=== PATIENT | male | born 1990 | race Caucasian/White ===

== ENCOUNTER 2021-09-05 22:38 | Emergency (ER) | payer OTHER ==
[2021-09-06 02:13] LABS: BASOPHIL 0.5 % (0-2); EOSINOPHIL 1.3 % (0-5); HCT 44.2 % (42.0-52.0); LYMPHOCYTE 44.1 % (15-48); MCH 31.3 pg (25.0-31.0); MCHC 33.9 g/dL (32.0-36.0); MCV 92.1 fL (78.0-100.0); MONOCYTE 12.2 % (0-12); MPV 8.6 fL (6.0-9.5); NEUTROPHIL 41.9 % (41-80); NRBC 0; PLT 215 K/uL (150-400); RDW 11.8 % (11.5-14.0); WBC 5.6 K/uL (4.0-10.5)
[2021-09-06 02:23] LABS: BILIRUBIN - TOTAL 0.3 mg/dL (0.2-1.0); BUN/CREAT RATIO (CALC) 17.1 RATIO; CREATININE 1.11 mg/dL (0.67-1.17); GLOBULIN (CALCULATION) 2.5 g/dL; POTASSIUM 3.6 mmol/L (3.5-5.1); TOTAL PROTEIN 6.5 g/dL (6.4-8.2)
== END 2021-09-05 23:38 | disposition left against medical advice (07) ==
LOC: FER 22:38
PROVIDERS: Emergency Medicine
DX: R07.9 Chest pain, unspecified (principal); Z53.8 Procedure and treatment not carried out for other reasons
CPT/HCPCS: 36415; 80053; 84484; 85025; 93005; 99281